=== PATIENT | male | born 1980 | race Caucasian/White ===

== ENCOUNTER 2022-05-01 16:40 | Emergency (ER) | payer OTHER ==
[~2022-05-01] VITALS: Ht 182.9 cm; Wt 92.0 kg
[~2022-05-01 16:40] MED LIST: NAPR500T6 PO; OXYC30TA2 PO; TRAZ-186 PO
[2022-05-01] MEDS ORDERED: ALBUTEROL SULFATE HFA 90 MCG/PUFF 8 GM INHALER IH ONE (17:30)
[2022-05-01] MEDS ORDERED: MUPI1OIN5 TP (17:55)
[2022-05-01 18:19] VITALS: BP 126/70
== END 2022-05-01 18:55 | disposition home or self-care (01) ==
LOC: EMS 16:45
DX: M54.9 Dorsalgia, unspecified (principal); F17.210 Nicotine dependence, cigarettes, uncomplicated; G89.29 Other chronic pain; Z77.120 Contact with and (suspected) exposure to mold (toxic)
CPT/HCPCS: 94640; 99283; J3535

== ENCOUNTER 2023-02-17 11:59 | Emergency (ER) | payer OTHER ==
[~2023-02-17] VITALS: Ht 185.4 cm; Wt 90.9 kg
[~2023-02-17 11:59] MED LIST changes: +MUPI1OIN5 TP; -NAPR500T6 PO; -OXYC30TA2 PO; -TRAZ-186 PO
[2023-02-17 12:18] VITALS: TEMP 98.1
[2023-02-17] MEDS ORDERED: INDO-16 PO (14:17)
[2023-02-17] MEDS ORDERED: PRED-554 PO (14:17)
[2023-02-17] MEDS ORDERED: COLC0.6T73 PO (14:17)
[2023-02-17] MEDS ORDERED: ALLO-45 PO (14:17)
[2023-02-17 14:32] VITALS: BP 138/89; PULSE 98; RESP 16
== END 2023-02-17 14:33 | disposition home or self-care (01) ==
LOC: EMS 11:59
DX: M10.9 Gout, unspecified (principal); G89.29 Other chronic pain; M54.9 Dorsalgia, unspecified; F17.210 Nicotine dependence, cigarettes, uncomplicated
CPT/HCPCS: 99283; Z7502